=== PATIENT | female | born 1975 | race Caucasian/White ===

== ENCOUNTER 2016-07-15 15:03 | Emergency (ER) | payer MEDICAID ==
[~2016-07-15] VITALS: Ht 175.3 cm; Wt 83.9 kg
[~2016-07-15 15:03] MED LIST: CITA-73 PO; DOXE10CA PO; ONDA8TAB6 PO; OXYC10TA44 PO; TOPI25TA84 PO; TRAZ50T PO; [UNRECOGNIZED DRUG - CODE] TD
[2016-07-15 16:15] LABS: Salicylate 2.9 mg/dL (2.8-20.0)
[2016-07-15 16:17] LABS: Albumin 4.5 g/dL (3.4-5.0); BUN/Creatinine Ratio 15.6; Bilirubin, Total 0.9 mg/dL (0.2-1.0); Calcium 9.3 mg/dL (8.5-10.1); Magnesium 2.3 mg/dL (1.6-2.6); Potassium 3.7 mmol/L (3.5-5.1); Total Protein 8.4 g/dL (6.4-8.2)
[2016-07-15 16:43] LABS: Acetaminophen < 2.0 ug/mL (10-30)
[2016-07-15 17:11] LABS: Basophils # (auto) 0 uL; Basophils % (auto) 0.2 % (0.0-2.0); Eosinophils # (auto) 0 uL; Hematocrit 45.2 % (36.0-46.0); Hemoglobin 15.2 g/dL (12.2-16.2); Lymphocytes # (auto) 2.6 uL; Lymphocytes % (auto) 24.1 % (10.0-50.0); Mean Corpuscular Hemoglobin 30.4 pg (28.0-32.0); Mean Corpuscular Hgb Conc. 33.6 g/dL (32.0-36.0); Mean Corpuscular Volume 90.5 fL (80.0-100.0); Mean Platelet Volume 8.3 fL (7.4-10.4); Monocytes # (auto) 0.6 uL; Monocytes % (auto) 5.9 % (0.0-12.0); Neutrophils # (auto) 7.6 uL; Neutrophils % (auto) 69.8 % (37.0-80.0); Platelet Count (auto) 344 10^3/uL (140-450); Red Cell Distribution Width 13.6 % (11.6-16.0); White Blood Cell 10.9 10^3/uL (4.4-10.8)
[2016-07-15 17:13] LABS: Urine Bilirubin Negative (Negative); Urine Ca Oxalate Crystal FEW (None Seen); Urine Color Yellow (Yellow); Urine Glucose Normal (Normal); Urine Mucus FEW (None Seen); Urine Nitrite Negative (Negative); Urine RBC 1 /hpf (0 - 4); Urine Squamous Epithelial Cell FEW /hpf (<5); Urine Urobilinogen Normal (Negative); Urine pH 5.5 (5.0-8.0)
[2016-07-15 17:14] LABS: Urine Blood 1+ /uL (Negative); Urine Ketone 1+ (Negative)
[2016-07-16] MEDS: LORazepam 0.5 MG TAB PO PRN (12:49)
[2016-07-16 22:15] VITALS: BP 122/68
== END 2016-07-15 22:49 | disposition short-term general hospital (02) ==
LOC: ER 15:05
DX: T43.012A Poisoning by tricyclic antidepressants, intentional self-harm, initial encounter (principal); F32.9 Major depressive disorder, single episode, unspecified; F12.10 Cannabis abuse, uncomplicated; F43.10 Post-traumatic stress disorder, unspecified; F42.9 Obsessive-compulsive disorder, unspecified; X83.8XXA Intentional self-harm by other specified means, initial encounter; Z87.891 Personal history of nicotine dependence; Y93.89 Activity, other specified; Y99.8 Other external cause status; Y92.89 Other specified places as the place of occurrence of the external cause
CPT/HCPCS: 36415; 71020; 80053; 80329; 81001; 81025; 83735; 85025; 93005; 94761; 99285; G0434